=== PATIENT | female | born 1945 | race Caucasian/White ===

== ENCOUNTER 2017-04-28 06:17 | Day surgery (SDC) | payer OTHER ==
[2017-04-27 12:27] VITALS: BMI 28.5
--- NOTE | 2017-04-27 18:49 | HP ---
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, s/p LPI - Medical History Illnesses: Asthma, Hypertension, Other (anxitey, cva with hemiparesis, PVD, ckd, ) Current Medications: Ambulatory Orders Acetaminophen [Tylenol] 325 mg PO Q6H PRN 04/27/17 Albuterol 2.5/Ipratropium 0.5 [Duoneb -] 1 neb IH QID 04/27/17 Amlodipine Besylate [Norvasc -] 10 mg PO DAILY 04/27/17 Aspirin [ASA -] 81 mg PO DAILY 04/27/17 Bromfenac Sodium [Prolensa] 1.6 ml OP DAILY 04/27/17 Calcium Carbonate [Calci-Chew] 500 mg PO QID 04/27/17 Cholecalciferol (Vitamin D3) [Vitamin D3] 1,000 unit PO DAILY 04/27/17 Clonazepam [Klonopin -] 0.5 mg PO DAILY 04/27/17 Clopidogrel Bisulfate [Plavix] 75 mg PO DAILY 04/27/17 Gabapentin [Neurontin -] 100 mg PO Q8H 04/27/17 Guaifenesin 100 mg PO TID PRN 04/27/17 Melatonin 5 mg PO HS 04/27/17 Moxifloxacin HCl [Vigamox 0.5% Eye Drops -] 1 drop NR TID 04/27/17 Nepafenac [Ilevro] 3 ml OP DAILY 04/27/17 [place]-3 Acid Ethyl Esters [Lovaza] 1 gm PO 04/27/17 Prednisolone 1% Ophthalmic [Pred Forte 1% -] 1 ml OP DAILY 04/27/17 Ranitidine HCl [Zantac] 150 mg PO DAILY 04/27/17 Salmeterol/Fluticasone [Advair 100Mcg/50Mcg -] 1 inh PO BID 04/27/17 Simvastatin [Zocor -] 20 mg PO HS 04/27/17 Allergies/Adverse Reactions: Allergies Allergy/AdvReac Type Severity Reaction Status Date / Time No Known Allergies Allergy Verified 04/27/17 11:58 Ocular Examination - Best Corrected Visual Acuity Distance: Right eye: 20/50 Distance: Left eye: 20/400 - External/Slit Lamp Examination Abnormalities: narrow angles - Intraocular Pressure Intraocular Pressure - Right eye: 15 Intraocular Pressure-Left eye: 20 - Lens Lens: 4+ NS brunescent, 4+ psc - Vitreous/Retina Vitreous/Retina: c:d limited view - Special Examination M - Right eye: +075 M - Left eye: no reflex K - Right eye: 45/45.25 x 038 K - Left eye: 44/45 x 165 AL - Right eye: 22.72 AL - Left eye: 22.27 IOL bag: +23.5 d hoya 251 IOL sulcus: +23.0d hoya 231 IOL AC: +19.5 d mta 4uo - Impression Impression: Other (mature cataract left eye) - Plan Plan: Phacoemulsification and cataract extraction - IOL Left eye (typan blue, block) Post-hospital care will be provided in office on: 04/29/17
--- NOTE | 2017-04-27 18:49 | HP ---
History & Physical Update - History History: No Change - Physical Physical: No Change - Assessment Assessment: No Change - Plan Plan: No Change
[~2017-04-28 06:17] MED LIST: BSS (NA/CA/MG/K) BALANCED SALT SOLUTION OPHTH SOLN 15 ML BOTTLE OS ONE; BUPIVACAINE HCL/PF 0.75% 10 ML VIAL RB ONE; CHONDROITIN SU A/HYALUR SOD 1 KIT IO ONE; EPINEPHrine/PF 1 MG/1 ML (1:1,000) AMPULE SQ ONE; LIDOCAINE HCL 1% PRESERVATIVE FREE - 30ML VIAL IO ONE; LIDOCAINE HCL/PF 2% SDV 5ML VIAL INF ONE; POVIDONE-IODINE 5% OPHTHALMIC PREP 30 ML SOLUTION OS ONE; TOBRAMYCIN/DEXAMETHASONE OPHTH. OINTMENT 1 TUBE OS ONE
[2017-04-28] MEDS ORDERED: PHENYLEPHRINE 2.5% OPHTH SOLN 15 ML BOTTLE ONE (07:08)
[2017-04-28] MEDS ORDERED: DICLOFENAC SODIUM 0.1% OPHTHALMIC 2.5ML BOTTLE ONE (07:08)
[2017-04-28] MEDS ORDERED: TROPICAMIDE 1% OPHTH SOLN 15 ML BOTTLE ONE (07:08)
[2017-04-28] MEDS ORDERED: CIPROFLOXACIN 0.3% EYE DROPS 5 ML BOTTLE ONE (07:08)
[2017-04-28 07:27] VITALS: TEMP 98.7
[2017-04-28] MEDS ORDERED: BSS (NA/CA/MG/K) BALANCED SALT SOLUTION OPHTH SOLN 15 ML BOTTLE ONE (07:29)
[2017-04-28] MEDS ORDERED: LIDOCAINE HCL/PF 1% SDV 5ML VIAL ONE (07:29)
[2017-04-28] MEDS ORDERED: BUPIVACAINE HCL/PF 0.75% 10 ML VIAL ONE (07:29)
[2017-04-28] MEDS ORDERED: LIDOCAINE HCL/PF 2% SDV 5ML VIAL ONE ×2 (07:29→10:44)
[2017-04-28] MEDS: DICLOFENAC SODIUM 0.1% OPHTHALMIC 2.5ML BOTTLE OP SCH ×3 (07:35→07:45)
[2017-04-28] MEDS: TROPICAMIDE 1% OPHTH SOLN 15 ML BOTTLE OP SCH ×3 (07:35→07:45)
[2017-04-28] MEDS: CIPROFLOXACIN HCL 0.3% OPHTH 2.5ML BOTTLE OP SCH ×3 (07:35→07:45)
[2017-04-28] MEDS: PHENYLEPHRINE 2.5% OPHTH SOLN 15 ML BOTTLE OP SCH ×3 (07:35→07:45)
[2017-04-28] MEDS ORDERED: ACETAMINOPHEN 325 MG TABLET (FP) PO PRN (08:30)
[2017-04-28] MEDS ORDERED: MIDAZOLAM HCL 2 MG/2 ML SINGLE DOSE VIAL ONE (10:44)
[2017-04-28] MEDS ORDERED: PROPOFOL 20 ML ONE ×2 (10:44)
[2017-04-28] MEDS ORDERED: BUPIVACAINE HCL/PF 0.75% 10 ML VIAL RB ONE (10:56)
[2017-04-28] MEDS ORDERED: LIDOCAINE HCL/PF 2% SDV 5ML VIAL INF ONE (10:56)
[2017-04-28] MEDS ORDERED: POVIDONE-IODINE 5% OPHTHALMIC PREP 30 ML SOLUTION OS ONE (10:58)
[2017-04-28] MEDS ORDERED: TRYPAN BLUE 0.5 ML DISP.SYRIN IO ONE (11:05)
[2017-04-28] MEDS ORDERED: BSS (NA/CA/MG/K) BALANCED SALT SOLUTION OPHTH SOLN 15 ML BOTTLE OS ONE (11:05)
[2017-04-28] MEDS ORDERED: CHONDROITIN SU A/HYALUR SOD 1 KIT IO ONE ×2 (11:05)
[2017-04-28] MEDS ORDERED: EPINEPHrine/PF 1 MG/1 ML (1:1,000) AMPULE SQ ONE (11:11)
[2017-04-28] MEDS ORDERED: ACETYLCHOLINE 1:100 INTRA-OCUL 20 MG/2 ML KIT IO ONE (11:27)
[2017-04-28] MEDS ORDERED: TOBRAMYCIN/DEXAMETHASONE OPHTH. OINTMENT 1 TUBE OS ONE (11:30)
--- NOTE | 2017-04-28 11:36 | OP ---
Ophthalmology Operative Note Pre-Operative Diagnosis: Mature cataract Affected Eye: Left Operation: Phacoemulsification and cataract extraction with PCIOL Findings: mature cataract Post-Operative Diagnosis: Same as Pre-op Edge Baster: None Anesthesiologist: Marcela Duvall Anesthesia: Local, Retrobulbar Specimens Removed: none Estimated blood loss: <1 cc Drains & Tubes with Location: none Operative Report Dictated: Yes
[2017-04-28 11:57] VITALS: BP 132/68; PULSE 84
--- NOTE | 2017-04-28 12:00 | OP ---
DATE OF OPERATION: 04/28/2017 PREOPERATIVE DIAGNOSIS: Mature cataract, left eye. POSTOPERATIVE DIAGNOSIS: Mature cataract, left eye. PROCEDURE: Phacoemulsification and cataract extraction with insertion of posterior chamber intraocular lens, left eye using trypan blue. SURGEON: Padmini Macias MD PRODUCT SUPPORT CONSULTANT: None. ANESTHESIA: Retrobulbar block. ANESTHESIOLOGIST: Marcela Duvall MD OPERATIVE PROCEDURE: Following satisfactory intravenous sedation, the patient received local anesthesia using a 50/50 mixture of 2% lidocaine and Marcaine 0.75%. A Van Lint lid block was delivered to the left eye using 4 mL of the mixture and a retrobulbar injection using 4 mL of the mixture. The patient was then prepped and draped in the usual sterile fashion so as to expose only the left eye. Ophthalmic Betadine was instilled into the inferior fornix. The lashes were taped out of the surgical field. An eyelid speculum was placed into the left eye. A paracentesis was made in inferior clear cornea at the limbus. An air bubble was injected into the anterior chamber, and trypan blue was dripped on the anterior capsular edge. Viscoelastic material was instilled into the anterior chamber via the paracentesis and used to remove the trypan blue. A 2.4-mm keratome was then used to create the main incision in temporal clear cornea at the limbus. A continuous curvilinear capsulorrhexis was performed using a cystotome and Utrata forceps. Hydrodissection of the lens cortex was performed using BSS on a cannula until the nucleus was noted to be freely rotating. The phacoemulsification tip was inserted via the main wound and used to sculpt 2 perpendicular grooves into the lens nucleus. The nucleus was crackled into 4 quadrants using 2 instruments. Each quadrant was lifted out of the capsule into the iris plane and individually phacoemulsified. The remaining cortical material was then aspirated using the irrigation and aspiration port. The capsular bag was inflated using Provisc, and a preloaded Hoya lens model 251, power +23.5 diopters was injected into the capsular bag. It was centered using a [place] hook. The residual viscoelastic material was removed from the anterior chamber using irrigation and aspiration. The wound edges were hydrated using BSS. 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 Therefore, Miochol approximately 0.5 mL was injected into the anterior chamber to constrict the pupil. The wound was again tested for leakage and was found to be watertight. TobraDex ointment was placed in the eye, and the speculum was removed from the eye. The eyelid was closed. A sterile dressing and shield were placed over the eye, and the patient was transferred to the recovery room in stable condition and told to follow up in 1 day. Fernando [id number]
== END 2017-04-28 12:20 ==
LOC: JASU-SURG 06:17
PROVIDERS: ATTEND Ophthalmology
PROC: 08RK3JZ Replacement of Left Lens with Synthetic Substitute, Percutaneous Approach (ICD-10-PCS; principal; 2017-04-28 09:30)
DX: H25.092 Other age-related incipient cataract, left eye (principal)